=== PATIENT | male | born 1980 | race Caucasian/White ===

== ENCOUNTER 2017-03-19 18:45 | Emergency (ER) | payer SELFPAY ==
[~2017-03-19] VITALS: Ht 172.7 cm; Wt 106.6 kg
[2017-03-19 18:47] VITALS: BP 128/89
[2017-03-19] MEDS ORDERED: IBUPROFEN 600 MG TAB PO ONE (23:00)
== END 2017-03-19 23:09 | disposition home or self-care (01) ==
LOC: ER 18:45
DX: S46.912A Strain of unspecified muscle, fascia and tendon at shoulder and upper arm level, left arm, initial encounter (principal); S46.811A Strain of other muscles, fascia and tendons at shoulder and upper arm level, right arm, initial encounter; Z91.013 Allergy to seafood; V49.49XA Driver injured in collision with other motor vehicles in traffic accident, initial encounter; Y93.89 Activity, other specified; Y99.8 Other external cause status; Y92.410 Unspecified street and highway as the place of occurrence of the external cause

== ENCOUNTER 2017-03-21 16:57 | Emergency (ER) | payer MEDICAID, OTHER ==
[~2017-03-21] VITALS: Ht 172.7 cm; Wt 107.0 kg
[2017-03-21 17:06] VITALS: BP 119/77
[2017-03-21] MEDS ORDERED: KETOROLAC TROMETH 60MG/2ML VIAL IM ONE (18:30)
== END 2017-03-21 18:34 | disposition home or self-care (01) ==
LOC: ER 17:01
DX: S16.1XXA Strain of muscle, fascia and tendon at neck level, initial encounter (principal); M54.12 Radiculopathy, cervical region; V49.9XXA Car occupant (driver) (passenger) injured in unspecified traffic accident, initial encounter; Y93.89 Activity, other specified; Y99.8 Other external cause status; Y92.89 Other specified places as the place of occurrence of the external cause; Z91.013 Allergy to seafood
CPT/HCPCS: 72040; 96372